=== PATIENT | female | born 1945 | race Caucasian/White ===

== ENCOUNTER → 2016-11-23 | Outpatient (CLI) | payer MEDICARE, BC ==
[~2016-11-23] MED LIST: ATEN-100 PO; DICY1TAB26 PO; GLUC500C3 OR; MIDAZOLAM HCL 5 MG/5 ML VIAL ONE; NORV5TAB PO; PRIL20CA PO; SIMV40TA PO; SUCR1TAB6 PO; fentaNYL CITRATE 250 MCG/5 ML AMP ONE
[2016-11-23 13:33] LABS: FREE T4 1.15 NG/DL (0.76-1.46)
[2016-11-24 23:54] LABS: THYROGLOB ABS LESS THAN 1 IU/mL (< OR = 1)
[2016-11-25 03:50] LABS: THYROGLOBULN LESS THAN 0.1 ng/mL (())
== END ==
LOC: PLAB 11:06
DX: E03.9 Hypothyroidism, unspecified (principal)
CPT/HCPCS: 36415; 84432; 84439; 84443; 86376; 86800